=== PATIENT | female | born 1940 | race Hispanic/Latino ===

== ENCOUNTER 2016-07-25 06:48 | Day surgery (SDC) | payer MEDICARE, BC ==
[2016-07-18 09:09] VITALS: BMI 27.1
[2016-07-25] MEDS ORDERED: Lidocaine 2% Jelly (30 ml) ONE (09:43)
[2016-07-25 09:53] VITALS: O2SAT 100
[2016-07-25 10:46] VITALS: BP 140/61; PULSE 61; RESP 18; TEMP 97.8
[2016-07-25] MEDS ORDERED: Sodium Chloride 0.9% 1,000 ML IV SCH (11:30)
== END 2016-07-25 11:39 | disposition home or self-care (01) ==
LOC: ENDO 06:48
PROVIDERS: ATTEND Internal Medicine Gastroenterology
DX: K57.30 Diverticulosis of large intestine without perforation or abscess without bleeding (principal); R19.4 Change in bowel habit; K59.00 Constipation, unspecified; K64.8 Other hemorrhoids; K63.9 Disease of intestine, unspecified
CPT/HCPCS: 45378; J7040